=== PATIENT | male | born 1950 | race Two or more races ===

== ENCOUNTER 2016-10-12 18:18 | Emergency (ER) | payer MEDICAID ==
[~2016-10-12] VITALS: Ht 188 cm; Wt 97.5 kg
--- NOTE | 2016-10-12 18:25 | NUR ---
bib family dt left testicular pain x 2 days,, sharp, shooting pain, 8/10, non raditing. Patient is aa3. Appears in no apparent distress. Respiration even and unlabored. Skin is warm to touch and non diaphoretic. Afebrile. denies hematuria nor dysuria
--- NOTE | 2016-10-12 18:35 | NUR ---
URINE SAMPLE OBTAINED, SENT.
--- NOTE | 2016-10-12 19:09 | NUR ---
ASSISTANT TO THE CEO AT FOR BLOOD DRAW.
[2016-10-12 19:10] LABS: APPEARANCE,URINE Clear (CLEAR); BILIRUBIN,URINE Negative (NEGATIVE); BLOOD, URINE Large Ery/uL (NEGATIVE); COLOR,URINE Yellow (YELLOW); KETONES,URINE Trace (NEGATIVE); LEUKOCYTE ESTERASE ,URINE Negative (NEGATIVE); NITRITE, URINE Negative (NEGATIVE); PH,URINE 5.5 (5.0-8.0); PROTEIN,URINE Trace mg/dl (NEGATIVE); UGLUCOSE Negative (NEGATIVE); UROBILINOGEN,URINE 0.2 EU/dL (0.2)
[2016-10-12 19:13] LABS: BASOPHILS # (AUTO) 0.1 /CMM (0.0-0.2); BASOPHILS % (AUTO) 0.7 % (0.0-2.0); EOSINOPHILS # (AUTO) 0.1 /CMM (0.0-0.7); EOSINOPHILS % (AUTO) 1.2 % (0.0-6.0); HEMATOCRIT 44 % (39-51); HEMOGLOBIN 14.4 g/dL (13.5-17.5); LYMPHOCYTES # (AUTO) 2.4 /CMM (0.8-4.8); LYMPHOCYTES % (AUTO) 26.9 % (20.0-44.0); MEAN CORPUSCULAR HEMOGLOBIN 30 PG (26.0-33.0); MEAN CORPUSCULAR HGB CONC 33 g/dl (31.0-36.0); MEAN CORPUSCULAR VOLUME 91 fL (80-96); MONOCYTES # (AUTO) 0.6 /CMM (0.1-1.30); MONOCYTES % (AUTO) 6.6 % (2.0-12.0); NEUTROPHILS # (AUTO) 5.8 /CMM (1.8-8.9); NEUTROPHILS % (AUTO) 64.6 % (43.0-81.0); PLATELET COUNT (AUTO) 235 /CMM (150-450); RDW COEFFICIENT OF VARIATION 12.4 (11.5-15.0); RED BLOOD CELL COUNT(AUTO) 4.82 MIL/uL (4.5-6.0)
[2016-10-12] MEDS ORDERED: KETOROLAC TROMETHAMINE INJ 60 MG/2 ML VIAL IM ONE (19:20)
[2016-10-12 19:21] LABS: BACTERIA,URINE Few /HPF (None Seen); SQUAMOUS EPITHELIAL CELL,UR Rare /HPF (None Seen)
[2016-10-12 19:22] LABS: CALCIUM, SERUM 9.2 mg/dL (8.5-10.1); CREATININE 1.1 mg/dL (0.6-1.3)
[2016-10-12] MEDS: KETOROLAC TROMETHAMINE INJ 60 MG/2 ML VIAL IM ONE (19:24)
--- NOTE | 2016-10-12 19:28 | NUR ---
PT REPORT RECIVED FROM LETI COLLINS, PT IS IN BED, PT FAMILY AT BEDSIDE, PT BREATHING EFFORTLESSLY ON ROOM AIR, A/OX4, WILL CONTINUE TO MONITOR.
--- NOTE | 2016-10-12 20:57 | NUR ---
PT TO CT
[2016-10-12 22:38] VITALS: BP 130/76
== END 2016-10-12 22:39 | disposition home or self-care (01) ==
LOC: ER 18:21
DX: N23 Unspecified renal colic (principal); R31.9 Hematuria, unspecified; I10 Essential (primary) hypertension; I70.0 Atherosclerosis of aorta; K40.90 Unilateral inguinal hernia, without obstruction or gangrene, not specified as recurrent; K44.9 Diaphragmatic hernia without obstruction or gangrene; M48.06 Spinal stenosis, lumbar region; Z90.79 Acquired absence of other genital organ(s)
CPT/HCPCS: 36415; 72128-TC; 80048-TC; 81000-TC; 85025-TC; A4606; J1885; Z7610

== ENCOUNTER 2016-11-09 10:47 | Inpatient (IN) | payer MEDICAID ==
[~2016-11-09] VITALS: Ht 185.4 cm; Wt 97.5 kg
--- NOTE | 2016-11-09 10:58 | NUR ---
FEVER X 2 DAYS R FLANK PAIN X1 MONTH
[2016-11-09] MEDS ORDERED: ONDANSETRON HCL/PF 4 MG/2 ML VIAL ONE (11:23)
[2016-11-09] MEDS ORDERED: CEFTRIAXONE 1GM BAG (ER ONLY) 50 ML IV ONE ×2 (11:23→11:30)
--- NOTE | 2016-11-09 11:23 | NUR ---
LAC #20 IV ACCESS. BLOOD SAMPLE COLLECTED SENT TO LAB
[2016-11-09 11:24] LABS: BASOPHILS # (AUTO) 0.1 /CMM (0.0-0.2); BASOPHILS % (AUTO) 0.5 % (0.0-2.0); EOSINOPHILS # (AUTO) 0.1 /CMM (0.0-0.7); EOSINOPHILS % (AUTO) 0.3 % (0.0-6.0); HEMATOCRIT 41 % (39-51); HEMOGLOBIN 14.1 g/dL (13.5-17.5); LYMPHOCYTES # (AUTO) 0.8 /CMM (0.8-4.8); LYMPHOCYTES % (AUTO) 4.6 % (20.0-44.0); MEAN CORPUSCULAR HEMOGLOBIN 30 PG (26.0-33.0); MEAN CORPUSCULAR HGB CONC 34 g/dl (31.0-36.0); MEAN CORPUSCULAR VOLUME 89 fL (80-96); MONOCYTES # (AUTO) 0.8 /CMM (0.1-1.30); MONOCYTES % (AUTO) 4.2 % (2.0-12.0); NEUTROPHILS # (AUTO) 16.5 /CMM (1.8-8.9); NEUTROPHILS % (AUTO) 90.4 % (43.0-81.0); PLATELET COUNT (AUTO) 204 /CMM (150-450); RDW COEFFICIENT OF VARIATION 12.1 (11.5-15.0); RED BLOOD CELL COUNT(AUTO) 4.63 MIL/uL (4.5-6.0); WHITE BLOOD COUNT (AUTO) 18.3 K/uL (4.3-11.0)
[2016-11-09] MEDS ORDERED: MORPHINE SULFATE INJ 4 MG/ML DISP.SYRIN ONE (11:24)
[2016-11-09 11:25] LABS: APPEARANCE,URINE Cloudy (CLEAR); BILIRUBIN,URINE Negative (NEGATIVE); BLOOD, URINE Large Ery/uL (NEGATIVE); KETONES,URINE Negative (NEGATIVE); LEUKOCYTE ESTERASE ,URINE Large (NEGATIVE); NITRITE, URINE Negative (NEGATIVE); PH,URINE 5.5 (5.0-8.0); PROTEIN,URINE >=300 mg/dl (NEGATIVE); UGLUCOSE Negative (NEGATIVE); UROBILINOGEN,URINE 0.2 EU/dL (0.2)
[2016-11-09 11:26] LABS: COLOR,URINE Dark Yellow (YELLOW)
[2016-11-09] MEDS ORDERED: IV NS 0.9% 1,000 ML BAG IV ONE (11:30)
[2016-11-09] MEDS ORDERED: ONDANSETRON HCL/PF 4 MG/2 ML VIAL IVP ONE (11:30)
[2016-11-09] MEDS ORDERED: MORPHINE SULFATE INJ 2 MG/ML DISP.SYRIN IV ONE (11:30)
[2016-11-09 11:34] LABS: CALCIUM, SERUM 8.8 mg/dL (8.5-10.1); CREATININE 1.2 mg/dL (0.6-1.3); POTASSIUM 3.6 mmol/L (3.5-5.1)
[2016-11-09 11:39] LABS: ALBUMIN 3.3 g/dL (3.4-5.0); BILIRUBIN,DIRECT 0.3 mg/dL (0.0-0.2); BILIRUBIN,TOTAL 1.6 mg/dL (0.2-1.0); TOTAL PROTEIN, SERUM 6.9 g/dL (6.4-8.2)
[2016-11-09 11:40] LABS: BACTERIA,URINE Moderate /HPF (None Seen); SQUAMOUS EPITHELIAL CELL,UR Few /HPF (None Seen); WBC,URINE 80-100 /HPF (0-3)
--- NOTE | 2016-11-09 13:17 | NUR ---
SEBASTIÁN PEREZ WHO IS CONDENSER SETTER FOR [facility]
[2016-11-09] MEDS ORDERED: ACETAMINOPHEN ES 500 MG TABLET ONE (13:22)
[2016-11-09] MEDS ORDERED: ACETAMINOPHEN 325 MG TABLET PO ONE ×2 (13:30→23:00)
--- NOTE | 2016-11-09 13:38 | NUR ---
Vineet Oakes On-Call Paged for 2nd time.
--- NOTE | 2016-11-09 13:49 | NUR ---
INNA PANEL PAGED DR. RUDD LEAD NEURODIAGNOSTIC TECHNOLOGIST
--- NOTE | 2016-11-09 14:01 | NUR ---
NURSE FIRE EATER PAGED FOR MED-SURG BED.
[2016-11-09] MEDS ORDERED: ASPI-991 PO (14:21)
[2016-11-09] MEDS ORDERED: SULF1TAB47 PO (14:21)
[2016-11-09] MEDS ORDERED: CHOL50002 PO (14:21)
[2016-11-09] MEDS ORDERED: ATOR20TA PO (14:21)
[2016-11-09] MEDS ORDERED: LOSA1TAB39 PO (14:21)
[2016-11-09] MEDS ORDERED: TAMS0.4C34 PO (14:21)
[2016-11-09] MEDS ORDERED: FENO130C8 PO (14:21)
--- NOTE | 2016-11-09 14:31 | NUR ---
GAVE REPORT TO MIGEL COLLINS [facility] 321-[address] DR RUDD ADMITTING DX PYELONEPHRITIS
--- NOTE | 2016-11-09 15:00 | NUR ---
MS VP PUBLIC RELATIONS NOTE PATIENT IS ALERT AND ORIENTED x4. NO PAIN AT THIS TIME. NO SOB OR DISTRESS NOTED. IV INTACT AND PATENT NO REDNESS OR SWELLING NOTED ON LEFT AC 20G. NO FLUIDS RUNNING AT THIS TIME. CALL LIGHT WITHIN REACH. SAFETY MEASURES IMPLEMENTED. ABLE TO COMMUNICATE NEEDS, BARBADIAN SPEAKING. DAUGHTER AT BEDSIDE. AWAITING ORDERS FROM MD. ON ROOM AIR. DILLARD CATHETER IN PLACE, NO SEDIMENT OR CLOUDY URINE NOTED. WILL CONTINUE TO MONITOR
[2016-11-09] MEDS ORDERED: MAGNESIUM HYDROXIDE 30 ML UDC PO PRN (17:00)
[2016-11-09] MEDS ORDERED: MAG HYDROX/AL HYDROX/SIMETH 30 ML UDC PO PRN (17:00)
[2016-11-09] MEDS ORDERED: ONDANSETRON HCL/PF 4 MG/2 ML VIAL IVP PRN (17:00)
[2016-11-09] MEDS ORDERED: ZOLPIDEM TARTRATE 5 MG TABLET PO PRN (17:00)
[2016-11-09] MEDS ORDERED: Z GUARD REMEDY 2 OZ OINT TP PRN (17:00)
[2016-11-09] MEDS ORDERED: HYDROCODONE/APAP 5/325MG 1 EACH TABLET PO PRN (17:00)
[2016-11-09] MEDS ORDERED: ERGOCALCIFEROL (VITAMIN D 2) 50,000 UNIT CAPSULE PO SCH (17:30)
--- NOTE | 2016-11-09 18:45 | NUR ---
MS RN CLOSING NOTE PATIENT IS ALERT AND ORIENTED x4. NO PAIN AT THIS TIME. NO SOB OR DISTRESS NOTED. CALL LIGHT WITHIN REACH AT ALL TIMES. SAFETY MEASURES IMPLEMENTED. ABLE TO COMMUNICATE NEEDS WITH DAUGHTER AT BEDSIDE. IV INTACT AND PATENT NO REDNESS OR SWELLING NOTED. WILL ENDORSE TO HARDWARE TEST ENGINEER NURSE
--- NOTE | 2016-11-09 19:49 | NUR ---
MS RN NOTE RECEIVED PATIENT FROM DAY SHIFT, PATIENT IS ALERT AND ORIENTEDX4, MALTESE SPEAKING, NO S/S OF RESPIRATORY DISTRESS OR PAIN AT THIS TIME, COMPLAINS OF FEELING COLD, WARM BLANKET PROVIDED. DILLARD CATH NOTED WITH CLEAR YELLOW URINE, IV ON LEFT AC IS PATENT AND INTACT, PATIENT PREFERS TO DRINK FLUID THAN IV HYDRATION. SRX2, BED IN LOW POSITION, CALL LIGHT WITHIN REACH, WILL CONTINUE TO MONITOR PATIENT.
[2016-11-09] MEDS: ACETAMINOPHEN 325 MG TABLET PO PRN (19:58)
[2016-11-09 20:00] VITALS: BP 146/77
--- NOTE | 2016-11-09 20:00 | NUR ---
MS RN NOTE PATIENT'S TEMP WAS 102.F, FEELS WARM, TYLENOL 650MG PO GIVEN. WILL PROVIDE ICE PACKS AND RECHECK HIS TEMP.
--- NOTE | 2016-11-09 22:55 | NUR ---
MS RN NOTE PATIENT'S RECHECK TEMP WAS 101.3F ORAL EVEN AFTER COOLING MEASURE, ICE PACKS, TYLENOL AND NORCO GIVEN, PAGED ONCALL [employer]ATIA AND NOTIFIED PATIENT'S TEMP. [employer] ORDERED STAT BLOOD CX AND TYLENOL ONCE NOW, AND KEEP Q6H TYLENOL ORDER. ORDERS PUT IN, CALLED THE LAB FOR STAT BLOOD CX, WILL CONTINUE TO MONITOR HIS TEMP.
[2016-11-09] MEDS ORDERED: ACETAMINOPHEN 325 MG TABLET ONE (22:59)
--- NOTE | 2016-11-09 23:00 | NUR ---
MS RN NOTE LAB CALLED AND SAID THEY ALREADY HAD HIS BLOOD SAMPLE THAT COLLECTED AT ER THIS MORNING, AND WILL ADD THE BLOOD CX ORDER ADDITIONALLY.
--- NOTE | 2016-11-09 23:38 | NUR ---
MS RN NOTE RECHECK TEMP WAS 99.4F ORAL.
--- NOTE | 2016-11-10 02:35 | NUR ---
MS RN NOTE PATIENT WAS RESTING IN BED COMFORTABLY, RECHECK TEMP WAS 98.3F.
[2016-11-10 06:36] LABS: EOSINOPHILS % (AUTO) 0.1 % (0.0-6.0); HEMATOCRIT 39 % (39-51); HEMOGLOBIN 13.3 g/dL (13.5-17.5); LYMPHOCYTES # (AUTO) 0.9 /CMM (0.8-4.8); LYMPHOCYTES % (AUTO) 5.3 % (20.0-44.0); MEAN CORPUSCULAR HEMOGLOBIN 31 PG (26.0-33.0); MEAN CORPUSCULAR HGB CONC 34 g/dl (31.0-36.0); MEAN CORPUSCULAR VOLUME 91 fL (80-96); MONOCYTES # (AUTO) 0.6 /CMM (0.1-1.30); MONOCYTES % (AUTO) 3.5 % (2.0-12.0); NEUTROPHILS % (AUTO) 91.1 % (43.0-81.0); PLATELET COUNT (AUTO) 177 /CMM (150-450); RDW COEFFICIENT OF VARIATION 12.8 (11.5-15.0); RED BLOOD CELL COUNT(AUTO) 4.26 MIL/uL (4.5-6.0); WHITE BLOOD COUNT (AUTO) 17.6 K/uL (4.3-11.0)
--- NOTE | 2016-11-10 06:50 | NUR ---
MS RN NOTE PATIENT IS RESTING IN BED COMFORTABLY, DENIES RESPIRATORY DISTRESS OR PAIN AT THIS TIME. IV ON LEFT AC IS PATENT AND INTACT. WILL ENDORSE TO DAY SHIFT FOR PAGE.
[2016-11-10 07:45] LABS: CALCIUM, SERUM 8.6 mg/dL (8.5-10.1); CREATININE 1.1 mg/dL (0.6-1.3); MAGNESIUM 1.6 mg/dL (1.8-2.4); PHOSPHORUS 2.5 mg/dL (2.5-4.9); POTASSIUM 3.9 mmol/L (3.5-5.1)
[2016-11-10 08:00] VITALS: BP 149/86
--- NOTE | 2016-11-10 08:01 | NUR ---
MS RN OPENING NOTE PATIENT IS ALERT AND ORIENTED x4. NO PAIN AT THIS TIME. NO SOB OR DISTRESS NOTED. CALL LIGHT WITHIN REACH. SAFETY MEASURES IMPLEMENTED. ABLE TO COMMUNICATE NEEDS. SAMOAN SPEAKING. IV INTACT AND PATENT NO REDNESS OR SWELLING NOTED. PATIENT HAS TEMPERATURE OF 103. COOLING MEASURES STARTED, AND MEDICATION GIVEN FOR FEVER. MD AWARE AND CHARGE NURSE AWARE. DILLARD CATHETER IN PLACE, NO CLOUDY URINE OR SEDIMENT NOTED. NO HEMATURIA. WILL CONTINUE TO MONITOR
[2016-11-10] MEDS: ASPIRIN EC 81 MG TABLET.DR PO SCH (08:06)
[2016-11-10] MEDS: PANTOPRAZOLE 40 MG TABLET.DR PO SCH (08:06)
[2016-11-10] MEDS: FENOFIBRATE NANOCRYS (145 MG) 145 MG TABLET PO SCH (08:06)
[2016-11-10] MEDS: TAMSULOSIN 0.4 MG CAP.SR.24H PO SCH (08:06)
[2016-11-10] MEDS: ATORVASTATIN 10 MG TABLET PO SCH (08:06)
[2016-11-10] MEDS: ACETAMINOPHEN 325 MG TABLET PO PRN ×3 (08:49→23:16)
[2016-11-10] MEDS: Magnesium 1GM/D5W 100ML PREMIX 100 ML IV SCH ×2 (10:35→11:38)
[2016-11-10] MEDS: IV NS 0.9% 1,000 ML IV PRN (10:36)
[2016-11-10] MEDS ORDERED: CEFTRIAXONE 1 G in IV D5W 50 ML IV SCH (12:00)
--- NOTE | 2016-11-10 14:18 | NUR ---
MS RN NOTE PATIENT'S TEMPERATURE WAS 98.5 THIS AFTERNOON. RECHECKED TEMPERATURE NOW AT 102. INFORMED DR. RUDD. INFORMED ME THAT PATIENT WILL BE SEEN BY INFECTIOUS DISEASE, START COOLING MEASURES, START PATIENT ON MERREM IV Q8H FOR UTI/ESBL. TYLENOL GIVEN TO REDUCE FEVER. WILL CONTINUE TO MONITOR PATIENT'S FEVER
[2016-11-10] MEDS: MEROPENEM 1 G in IV NS 0.9% 100 ML IV SCH ×2 (15:10→22:40)
[2016-11-10 16:00] VITALS: BP 131/61
--- NOTE | 2016-11-10 18:28 | NUR ---
MS RN CLOSING NOTE PATIENT IS ALERT AND ORIENTED x4. NO PAIN AT THIS TIME. NO SOB OR DISTRESS NOTED. CALL LIGHT WITHIN REACH AT ALL TIMES. SAFETY MEASURES IMPLEMENTED. IV SITE CHANGED FROM LEFT AC TO LEFT HAND 22G INTACT AND PATENT NO REDNESS OR SWELLING NOTED. ABLE TO COMMUNICATE NEEDS. IV FLUIDS RUNNING AT 75 ML/HR. DILLARD CATHETER IN PLACE NO CLOUDY APPEARANCE NOTED, NO SEDIMENT OR BLOOD PRESENT. TURKISH SPEAKING. MONITORING TEMPERATURE ROUTINELY, PATIENT HAD FEVER THROUGHOUT SHIFT, MEDS GIVEN, MD AWARE. ORDERS GIVEN TO START PATIENT ON MERREM, ORDERS NOTED AND CARRIED OUT. WILL ENDORSE TO SWISS TYPE SCREW MACHINE OPERATOR NURSE
--- NOTE | 2016-11-10 19:20 | NUR ---
RN NOTES RECEIVED PT IN BED, AWAKE, A/OX 4. ENGLISH SPEAKING. FAMILY MEMBERS AT BED SIDE. NO SOB OR DISTRESS NOTED. TEMP IS 101. 3 AT THIS TIME, CHARGE NURSE RENETTA AWARE. COOLING MEASURES RENDERED. PT NOT DUE FOR TYLENOL AT THIS TIME. WILL MONITOR TEMPERATURE CLOSELY. IV SITE ON LEFT HAND INTACT AND PATENT. INTACT AND PATENT, NO REDNESS OR SWELLING NOTED. IVF INFUSING WELL. DILLARD CATHETER INTACT AND PATENT DRAINING WITH CLEAR YELLOW URINE, NO HEMATURIA NOTED. ALL NEEDS ATTENDED AND MET. KEPT COMFORTABLE. FLUIDS ENCOURAGED TOLERATED. SAFETY PRECAUTIONS OBSERVED. CALL LIGHT WITHIN REACH. WILL CONTINUE TO MONITOR
[2016-11-10 20:00] VITALS: BP 134/72
--- NOTE | 2016-11-10 20:30 | NUR ---
RECHECKED PT'S TEMPERATURE , 101.2 AT THIS TIME. COOLING MEASURES ADMINISTERED, ADVISED PT TO HAVE THIN BLANKET. WILL CONTINUE TO MONITOR.
[2016-11-10 20:37] VITALS: BP 134/72
--- NOTE | 2016-11-10 21:30 | NUR ---
PT'S TEMPERATURE 101.1 AT THIS TIME, ICE PACKS PROVIDED AT THIS TIME. NO C/O PAIN OR DISCOMFORT. NO DISTRESS OR SOB AT THIS TIME. WILL CONT TO MONITOR.
--- NOTE | 2016-11-10 22:45 | NUR ---
PT'S TEMPERATURE 100.1 AT THIS TIME, COOLING MEASURES PROVIDED. PT DENIES ANY DISCOMFORT AT THIS TIME, NO SOB . WILL CONT TO MONITOR, AT BEDSIDE. WILL CONT TO MONITOR.
--- NOTE | 2016-11-10 23:16 | NUR ---
RECHECKED PT'S TEMPERATURE , CURRENTLY 100.8 AT THIS TIME, TYLENOL GIVEN ORDERED. WILL CONT TO MONITOR.
--- NOTE | 2016-11-11 01:34 | NUR ---
SPONGED BATH DONE AT THIS TIME, NOTICED PT SWEATING. DENIES ANY PAIN OR DISCOMFORT. NO DISTRESS. TEMP IS 98.4 AT THIS TIME. AT BEDSIDE.
[2016-11-11] MEDS: IV NS 0.9% 1,000 ML IV PRN ×2 (03:12→17:11)
--- NOTE | 2016-11-11 03:20 | NUR ---
PT ASLEEP AT THIS TIME, AROUSES EASILY. NO DISTRESS NOTED. PATIENT'S TEMPERATURE IS 98.3 AT THIS TIME. WILL CONT TO MONITOR.
--- NOTE | 2016-11-11 06:25 | NUR ---
RN NOTES PT IN BED, RESTING COMFORTABLY AT THIS TIME, AROUSES EASILY. A/OX 4. ICELANDIC SPEAKING. AT BED SIDE. NO SOB OR DISTRESS NOTED. IV SITE ON LEFT HAND INTACT AND PATENT, NO REDNESS OR SWELLING NOTED. IVF INFUSING WELL. DILLARD CATHETER INTACT AND PATENT DRAINING WITH CLEAR YELLOW URINE, NO HEMATURIA NOTED. ALL NEEDS ATTENDED AND MET. KEPT COMFORTABLE. PT IS AFEBRILE AT THIS TIME.SAFETY PRECAUTIONS OBSERVED. CALL LIGHT WITHIN REACH. WILL ENDORSE TO NEXT SHIFT FOR PAGE.
[2016-11-11] MEDS: MEROPENEM 1 G in IV NS 0.9% 100 ML IV SCH ×3 (06:35→22:33)
[2016-11-11] MEDS: PANTOPRAZOLE 40 MG TABLET.DR PO SCH (06:42)
[2016-11-11 06:46] LABS: CALCIUM, SERUM 8.1 mg/dL (8.5-10.1); POTASSIUM 3.9 mmol/L (3.5-5.1)
--- NOTE | 2016-11-11 07:34 | NUR ---
RN NOTES RECEIVED PATIENT IN BED, AWAKE, HOB ELEVATED, NO SOB OR DISTRESS NOTED. A/O X 4, VERBALLY RESPONSIVE AND ABLE TO MAKE NEEDS KNOWN IN [facility]. IV INTACT AND PATENT. KEPT PATIENT CLEAN AND COMFORTABLE IN BED, CALL LIGHT WITHIN PATIENT REACH, WILL CONTINUE TO MONITOR ACCORDINGLY.
[2016-11-11 08:00] VITALS: BP 125/56
[2016-11-11] MEDS: ASPIRIN EC 81 MG TABLET.DR PO SCH (08:51)
[2016-11-11] MEDS: TAMSULOSIN 0.4 MG CAP.SR.24H PO SCH (08:51)
[2016-11-11] MEDS: FENOFIBRATE NANOCRYS (145 MG) 145 MG TABLET PO SCH (08:51)
[2016-11-11] MEDS: ATORVASTATIN 10 MG TABLET PO SCH (08:53)
--- NOTE | 2016-11-11 12:30 | NUR ---
RN NOTES ELIZABETH ARMENDARIZ ORDERED 2 SITES BLOOD CULTURES TO MAKE SURE WHAT KIND OF INFECTION THE PATIENT HAS.
[2016-11-11 16:00] VITALS: BP 120/68
--- NOTE | 2016-11-11 16:25 | NUR ---
DENNIS SEGURA FROM [facility] [employer] CALLED TO FIND OUT IF PATIENT HAS ANY DISCHARGE ORDERS.
--- NOTE | 2016-11-11 18:55 | NUR ---
RN NOTES ALL NEEDS PROVIDED, ATTENDED, AND ANTICIPATED. KEPT PATIENT CLEAN AND COMFORTABLE IN BED, CALL LIGHT WITHIN PATIENT REACH. WILL CONTINUE TO MONITOR ACCORDINGLY. ENDORSED TO NEXT SHIFT RN TO CONTINUE CARE.
--- NOTE | 2016-11-11 19:15 | NUR ---
RN NOTES RECEIVED PT IN BED, AWAKE, A/OX 4. KOSOVAN SPEAKING. FAMILY MEMBERS AT BED SIDE. NO SOB OR DISTRESS NOTED. IV SITE ON LEFT HAND INTACT AND PATENT. INTACT AND PATENT, NO REDNESS OR SWELLING NOTED. IVF INFUSING WELL. DILLARD CATHETER INTACT AND PATENT DRAINING WITH CLEAR YELLOW URINE, NO HEMATURIA NOTED. AFEBRILE. ALL NEEDS ATTENDED AND MET. KEPT COMFORTABLE. FLUIDS ENCOURAGED TOLERATED. SAFETY PRECAUTIONS OBSERVED. CALL LIGHT WITHIN REACH. WILL CONTINUE TO MONITOR.
[2016-11-11 20:00] VITALS: BP 126/69
--- NOTE | 2016-11-12 01:30 | NUR ---
MSRN SLEEPING APPEARS COMFORTABLE. PRESENT IVF INFUSING WELL.
--- NOTE | 2016-11-12 02:24 | NUR ---
PT STABLE AT THIS TIME, ENDORSED TO PILY FOR PAGE. Addendum: 11/12/16 at 0226 by JULIO MASTERSON RN INCORRECT DOCUMENTATION
--- NOTE | 2016-11-12 02:26 | NUR ---
PT IS STABLE, SLEEPING AT THIS TIME. AT BEDSIDE. . AFEBRILE. ENDORSED TO DENNIS REYES FOR PAGE.
[2016-11-12] MEDS: MEROPENEM 1 G in IV NS 0.9% 100 ML IV SCH ×3 (06:18→23:19)
--- NOTE | 2016-11-12 07:04 | NUR ---
MALINA NAILS ON PROGRESS. NO NEEDS MADE. GILMA 1850 CC.
--- NOTE | 2016-11-12 07:34 | NUR ---
RN NOTES RECEIVED PATIENT IN BED, AWAKE, HOB ELEVATED, NO SOB OR DISTRESS NOTED. A/O X 4, VERBALLY RESPONSIVE AND ABLE TO MAKE NEEDS KNOWN IN [facility]. IV INTACT AND PATENT. KEPT PATIENT CLEAN AND COMFORTABLE IN BED, CALL LIGHT WITHIN PATIENT REACH, WILL CONTINUE TO MONITOR ACCORDINGLY.
[2016-11-12 08:00] VITALS: BP 146/75
[2016-11-12] MEDS: ATORVASTATIN 10 MG TABLET PO SCH (09:29)
[2016-11-12] MEDS: ASPIRIN EC 81 MG TABLET.DR PO SCH (09:29)
[2016-11-12] MEDS: TAMSULOSIN 0.4 MG CAP.SR.24H PO SCH (09:29)
[2016-11-12] MEDS: FENOFIBRATE NANOCRYS (145 MG) 145 MG TABLET PO SCH (09:29)
[2016-11-12] MEDS: PANTOPRAZOLE 40 MG TABLET.DR PO SCH (09:29)
[2016-11-12 11:09] LABS: BASOPHILS % (AUTO) 0.5 % (0.0-2.0); EOSINOPHILS # (AUTO) 0.1 /CMM (0.0-0.7); EOSINOPHILS % (AUTO) 2.1 % (0.0-6.0); HEMATOCRIT 35 % (39-51); HEMOGLOBIN 12.1 g/dL (13.5-17.5); LYMPHOCYTES # (AUTO) 1.2 /CMM (0.8-4.8); LYMPHOCYTES % (AUTO) 21.1 % (20.0-44.0); MEAN CORPUSCULAR HEMOGLOBIN 31 PG (26.0-33.0); MEAN CORPUSCULAR HGB CONC 34 g/dl (31.0-36.0); MEAN CORPUSCULAR VOLUME 89 fL (80-96); MONOCYTES # (AUTO) 0.5 /CMM (0.1-1.30); MONOCYTES % (AUTO) 9.6 % (2.0-12.0); NEUTROPHILS # (AUTO) 3.8 /CMM (1.8-8.9); NEUTROPHILS % (AUTO) 66.7 % (43.0-81.0); PLATELET COUNT (AUTO) 194 /CMM (150-450); RDW COEFFICIENT OF VARIATION 12.4 (11.5-15.0); RED BLOOD CELL COUNT(AUTO) 3.95 MIL/uL (4.5-6.0); WHITE BLOOD COUNT (AUTO) 5.7 K/uL (4.3-11.0)
--- NOTE | 2016-11-12 11:20 | NUR ---
RN NOTES CONTINUE DILLARD BY ELIZABETH LORENZO.
[2016-11-12 11:38] LABS: CALCIUM, SERUM 7.9 mg/dL (8.5-10.1); CREATININE 0.9 mg/dL (0.6-1.3); POTASSIUM 3.7 mmol/L (3.5-5.1)
[2016-11-12] MEDS ORDERED: BACITRACIN ZINC OINT PACKET 1 EA PACKET TP SCH (12:00)
--- NOTE | 2016-11-12 13:10 | NUR ---
RN NOTES PATIENT IS WITH AT BED SIDE WITH NO SOB OR DISTRESS NOTED.
[2016-11-12] MEDS: IV NS 0.9% 1,000 ML IV PRN (14:37)
[2016-11-12 16:00] VITALS: BP 143/74
[2016-11-12] MEDS: BACITRACIN ZINC OINT (15 GM) 15 GM TUBE TP SCH (17:43)
[2016-11-12 20:00] VITALS: BP 137/74
[2016-11-13] MEDS: IV NS 0.9% 1,000 ML IV PRN (05:17)
--- NOTE | 2016-11-13 06:26 | NUR ---
MS RN NOTES AWAKE & RESPONSIVE. NOT IN ANY DISTRESS. NO SOB NOTED. DENIES ANY PAIN OR DISCOMFORT AT THIS TIME. WITH IVF INFUSING WELL. MONITORED ACCORDINGLY. CALL LIGHT WITHIN REACH. BED IN LOWEST POSITION. SR UP X 2 FOR SAFETY. WILL ENDORSE TO NEXT SHIFT.
--- NOTE | 2016-11-13 07:38 | NUR ---
MS/RN OPENING NOTE PATIENT RECEIVED IN BED IN STABLE CONDITION. ALERT AND ORIENTED TIMES 4. GUINEAN SPEAKING. NO COMPLAIN OF PAIN AND DISCOMFORT. NO SIGNS AND SYMPTOMS OF ACUTE DISTRESS. ALL NEEDS ATTENDED TO. CALL LIGHT WITHIN REACH. WILL CONTINUE TO MONITOR TO ENSURE SAFETY.
[2016-11-13 08:00] VITALS: BP 150/85
[2016-11-13] MEDS: PANTOPRAZOLE 40 MG TABLET.DR PO SCH (08:30)
[2016-11-13] MEDS: ATORVASTATIN 10 MG TABLET PO SCH (08:30)
[2016-11-13] MEDS: FENOFIBRATE NANOCRYS (145 MG) 145 MG TABLET PO SCH (08:30)
[2016-11-13] MEDS: TAMSULOSIN 0.4 MG CAP.SR.24H PO SCH (08:31)
[2016-11-13] MEDS: ASPIRIN EC 81 MG TABLET.DR PO SCH (08:31)
[2016-11-13] MEDS: MEROPENEM 1 G in IV NS 0.9% 100 ML IV SCH (08:52)
[2016-11-13] MEDS: BACITRACIN ZINC OINT (15 GM) 15 GM TUBE TP SCH (09:00)
[2016-11-13] MEDS ORDERED: ASPI-991 PO (09:46)
[2016-11-13] MEDS ORDERED: LEVO750T21 PO (09:46)
[2016-11-13 10:12] LABS: BASOPHILS % (AUTO) 0.4 % (0.0-2.0); EOSINOPHILS # (AUTO) 0.2 /CMM (0.0-0.7); EOSINOPHILS % (AUTO) 3.6 % (0.0-6.0); HEMATOCRIT 37 % (39-51); HEMOGLOBIN 12.3 g/dL (13.5-17.5); LYMPHOCYTES # (AUTO) 1.6 /CMM (0.8-4.8); LYMPHOCYTES % (AUTO) 28.3 % (20.0-44.0); MEAN CORPUSCULAR HEMOGLOBIN 30 PG (26.0-33.0); MEAN CORPUSCULAR HGB CONC 34 g/dl (31.0-36.0); MEAN CORPUSCULAR VOLUME 89 fL (80-96); MONOCYTES # (AUTO) 0.6 /CMM (0.1-1.30); MONOCYTES % (AUTO) 9.6 % (2.0-12.0); NEUTROPHILS # (AUTO) 3.3 /CMM (1.8-8.9); NEUTROPHILS % (AUTO) 58.1 % (43.0-81.0); PLATELET COUNT (AUTO) 201 /CMM (150-450); RDW COEFFICIENT OF VARIATION 12.6 (11.5-15.0); RED BLOOD CELL COUNT(AUTO) 4.08 MIL/uL (4.5-6.0); WHITE BLOOD COUNT (AUTO) 5.7 K/uL (4.3-11.0)
--- NOTE | 2016-11-13 10:18 | NUR ---
MS/RN SEEN BY KALA JOHNSON PATIENT SEEN BY KALA JACOBS NP WITH ORDERS OF CT OF ABDOMEN, LAB WORK OF CBC, MG, PHOS AND OKAY TO DISCHARGE TODAY.
[2016-11-13 10:22] LABS: CREATININE 0.9 mg/dL (0.6-1.3); POTASSIUM 3.6 mmol/L (3.5-5.1)
--- NOTE | 2016-11-13 15:00 | NUR ---
/RN SEEN BY KALA JACOBS PATIENT SEEN BY KALA WITH ORDER OF CT ABDOMEN WITHOUT CONTRAST. CT ABDOMEN WITHOUT CONTRAST DONE STILL NOTED WITH 1OMM STONE AND WILL BE DC HOME WITH FC. PATIENT FAMILY AWARE AND PER ISIDRO (DAUGHTER IN LAW) WILL COME INSULATION EXTRUDER OPERATOR PATIENT IN 2HRS. ALL NEEDS ATTENDED TO. CALL LIGHT WITH IN REACH. WILL CONTINUE TO MONITOR TO ENSURE SAFETY. Addendum: 11/13/16 at 1505 by ALAN AUGUSTINE RN 10MM CALCIFICATION.
--- NOTE | 2016-11-13 15:54 | NUR ---
MS/RN DISCHARGED HOME PATIENT DISCHARGED HOME IN STABLE CONDITION. LEFT WRIST IV HEP LOCK REMOVED. TOLERATED WELL. PATIENT LEFT WITH DILLARD CATHETER IN PLACE. DISCHARGE INSTRUCTION REGARDING DILLARD CATHETER CARE PROVIDED TO PATIENT AND TRANSLATED IN [place] BY PATIENT'S FAMILY MEMBER. VERBALIZED UNDERSTANDING OF TEACHINGS. ALSO MADE AWARE REGARDING TO SCHEDULE APPOINTMENT WITH UROLOGY. PER FAMILY MEMBER THEY ALREADY SPOKE TO PATIENT'S PRIMARY PHYSICIAN AND HAD SCHEDULED THE APPOINTMENT. Addendum: 11/13/16 at 1608 by NEAL MILLER NAME BAND REMOVE PRIOR TO DISCHARGE.
== END 2016-11-13 15:45 | disposition home or self-care (01) | DRG 720 ==
LOC: ER 10:55 → MED 14:36
PROVIDERS: ADMIT Internal Medicine; ATTEND Internal Medicine
DX: A41.9 Sepsis, unspecified organism (principal); I10 Essential (primary) hypertension; N12 Tubulo-interstitial nephritis, not specified as acute or chronic; N20.2 Calculus of kidney with calculus of ureter; Z88.8 Allergy status to other drugs, medicaments and biological substances; N20.0 Calculus of kidney; Z87.442 Personal history of urinary calculi; N21.1 Calculus in urethra; N13.6 Pyonephrosis; M19.90 Unspecified osteoarthritis, unspecified site; E78.5 Hyperlipidemia, unspecified; Z98.890 Other specified postprocedural states
CPT/HCPCS: 36415; 71250-TC; 80048-TC; 80076-TC; 81000-TC; 83690-TC; 83735-TC; 84100-TC; 85025-TC; 87040-TC; 87081-TC; 87086-TC; 87186-TC; A4606; J0696; J2185; J2270; J2405; J3475; J7030; J7060; Z7610